=== PATIENT | female | born 1985 | race Caucasian/White ===

== ENCOUNTER 2024-01-07 20:28 | Day surgery (SDC) | payer OTHER ==
[2024-01-07 20:53] VITALS: BMI 23.2
[2024-01-07 21:37] LABS: Fetal Membranes Rupture No Membranes Rupture (No Rupture)
[2024-01-07] MEDS ORDERED: hydrALAZINE 20 MG/ML VIAL SLOW IVP PRN (22:06)
== END 2024-01-07 22:10 | disposition home or self-care (01) ==
LOC: CSHLD/OP 20:28
PROVIDERS: ATTEND Family Medicine
DX: Z03.71 Encounter for suspected problem with amniotic cavity and membrane ruled out (principal); O34.211 Maternal care for low transverse scar from previous cesarean delivery; Z98.890 Other specified postprocedural states; Z79.899 Other long term (current) drug therapy; Z88.1 Allergy status to other antibiotic agents; Z91.048 Other nonmedicinal substance allergy status; Z3A.36 36 weeks gestation of pregnancy
CPT/HCPCS: 84112; 87480; 87510; 87660; 99284

== ENCOUNTER 2024-01-28 05:30 | Inpatient (IN) | payer OTHER ==
[2024-01-28 06:12] VITALS: BMI 23.2
[2024-01-28] MEDS ORDERED: Lidocaine 1% (PF) 30 ML VIAL SC PRN ×2 (07:14→07:16)
[2024-01-28] MEDS ORDERED: Ondansetron PF 4 MG/2 ML Vial IVP PRN (07:14)
[2024-01-28] MEDS ORDERED: hydrALAZINE 20 MG/ML VIAL SLOW IVP PRN ×2 (07:14→17:06)
[2024-01-28] MEDS ORDERED: Promethazine HCl 25 MG/ML VIAL IM PRN (07:14)
[2024-01-28] MEDS ORDERED: Oxytocin 30 units/NS 500 ML 500 ML IV SCH (07:15)
[2024-01-28 07:32] LABS: Hematocrit 38.5 % (34.9-44.5); Hemoglobin 13.7 g/dL (12.0-15.5); Mean Corpuscular HGB CONC 35.6 g/dL (32.0-36.0); Mean Corpuscular Hemoglobin 31.9 pg (27.0-33.0); Mean Corpuscular Volume 89.7 fL (81.6-98.3); Mean Platelet Volume 11.3 fL (7.4-10.4); Platelet Count 124 10x3/uL (150-450); RBC Distribution Width 13.5 % (11.5-14.5); Red Blood Cell (RBC) Count 4.29 10x6/uL (3.90-5.03); White Blood Cell (WBC) Count 5.3 10x3/uL (3.5-10.5)
[2024-01-28] MEDS: Penicillin G Potassium 5 MILL.UNITS in Sodium Chloride 0.9% 100 ML IVPB SCH (07:32)
[2024-01-28 07:53] LABS: Syphilis Antibody Nonreactive (Nonreactive); Syphilis Antibody Index 0.02 S/CO (<1.00 Non-Reactive)
[2024-01-28 07:54] LABS: HBsAg Index 0.24 S/CO (0-0.99); Hep B Surf Ag - L&D Non-Reactive S/CO (NonReactive)
[2024-01-28] MEDS: Penicillin G 2.5 MILL.units 2.5 MILL.UNITS in Premix 1 BAG IVPB SCH (11:26)
[2024-01-28 15:29] LABS: Analyzer IN Cardio CS NICU; Critical Notified Whom: RICWE; RapidComm Collect By CBN
[2024-01-28 15:31] LABS: Analyzer IN Cardio CS NICU; Critical Notified Whom: RICWE; RapidComm Collect By CBN
[2024-01-28] MEDS ORDERED: Milk Of Magnesia 30 ML UDCUP PO PRN (17:06)
[2024-01-28] MEDS ORDERED: Bisacodyl 10 MG SUPP PR PRN (17:06)
[2024-01-28] MEDS ORDERED: HYDROcodone/Acetaminophen 5/325 mg Tablet PO PRN (17:06)
[2024-01-28] MEDS: Penicillin G Potassium 5 MILL.UNITS VIAL ONE (17:08)
[2024-01-28] MEDS: Ferrous Sulfate 325 MG TAB PO SCH (17:55)
[2024-01-28] MEDS: Ibuprofen 800 MG TAB PO SCH (20:11)
[2024-01-28] MEDS: Docusate 100 MG CAP PO SCH (20:11)
[2024-01-28] MEDS: Benzocaine-Menthol 82.5 ML CAN TOP PRN (20:12)
[2024-01-29 07:51] VITALS: BP 95/54; TEMP 98.1
== END 2024-01-29 16:55 | disposition home or self-care (01) | DRG 807 ==
LOC: CSHLD 05:44 → CSHPP 17:15
PROVIDERS: ADMIT Family Medicine; ATTEND Family Medicine
PROC: 10D07Z6 Extraction of Products of Conception, Vacuum, Via Natural or Artificial Opening (ICD-10-PCS; principal; 2024-01-28)
PROC: 10907ZC Drainage of Amniotic Fluid, Therapeutic from Products of Conception, Via Natural or Artificial Opening (ICD-10-PCS; 2024-01-28)
PROC: 0UQMXZZ Repair Vulva, External Approach (ICD-10-PCS; 2024-01-28)
DX: O34.219 Maternal care for unspecified type scar from previous cesarean delivery (principal); Z37.0 Single live birth; Z3A.39 39 weeks gestation of pregnancy; Z88.8 Allergy status to other drugs, medicaments and biological substances; O77.9 Labor and delivery complicated by fetal stress, unspecified; O70.0 First degree perineal laceration during delivery
CPT/HCPCS: 82805; 85027; 86780; 86850; 86900; 86901; 87340; J2540